=== PATIENT | female | born 1990 | race Caucasian/White ===

== ENCOUNTER 2017-09-03 20:07 | Emergency (ER) | payer MEDICAID ==
--- NOTE | 2017-09-03 22:10 | ER Document Report ---
ED Medical Screen (RME) - General Chief Complaint: Vag Bleeding, +preg <12wks Stated Complaint: VAGINAL BLEEDING Time Seen by Provider: 09/03/17 22:07 Mode of Arrival: Ambulatory Information source: Patient Notes: 27-year-old female presents to ED for vaginal bleeding at 7 weeks . She states she vaginal bleeding was dripping in the toilet then she passed a large clot. She states she has not soaked a solid pad since she started around 8:00. She states she just had a miscarriage in May. She states this time she has had a home test and the doctor's office confirmation test. She states she has not had a blood test yet. I have greeted and performed a rapid initial assessment of this patient. A comprehensive ED assessment and evaluation of the patient, analysis of test results and completion of medical decision making process will be conducted by an additional ED providers. TRAVEL OUTSIDE OF THE [place] IN LAST 30 DAYS: No - Related Data Allergies/Adverse Reactions: No Known Allergies Allergy (Verified 05/23/17 10:11) Past Medical History - Social History Family history: None Renal/ Medical History: Denies: Hx Peritoneal Dialysis - Immunizations Hx Diphtheria, Pertussis, Tetanus Vaccination: Yes Physical Exam - Vital signs Vitals: Temp Pulse Resp BP Pulse Ox 98.7 F 124 H 18 119/79 100 09/03/17 20:33 09/03/17 20:33 09/03/17 20:33 09/03/17 20:33 09/03/17 20:33 Course - Vital Signs Vital signs: Temp Pulse Resp BP Pulse Ox 98.7 F 124 H 18 119/79 100 09/03/17 20:33 09/03/17 20:33 09/03/17 20:33 09/03/17 20:33 09/03/17 20:33
[2017-09-03 22:44] LABS: ABSOLUTE EOSINOPHILS # (AUTO) 0.1 10^3/uL (0.0-0.6); ABSOLUTE LYMPHOCYTES (AUTO) 2.7 10^3/uL (0.5-4.7); ABSOLUTE MONOCYTES (AUTO) 0.9 10^3/uL (0.1-1.4); ABSOLUTE NEUT (AUTO) 5.8 10^3/uL (1.7-8.2); BASOPHILS % (AUTO) 0.3 % (0-2); EOSINOPHILS % (AUTO) 0.6 % (0-6); HEMATOCRIT 40.1 % (36.0-47.0); HEMOGLOBIN 13.5 g/dL (12.0-15.5); LYMPHOCYTES % (AUTO) 28.3 % (13-45); MEAN CORPUSCULAR HGB CONC 33.7 g/dL (32.0-36.0); MEAN CORPUSCULAR VOLUME 92 fl (80-97); MONOCYTES % (AUTO) 9.5 % (3-13); PLATELET COUNT 311 10^3/uL (150-450); RED BLOOD COUNT 4.37 10^6/uL (3.72-5.28); RED CELL DISTRIBUTION WIDTH 14.2 % (11.5-14.0); SEGMENTED NEUTROPHILS % (AUTO) 61.3 % (42-78); TOTAL CELLS COUNTED % (AUTO) 100 %; WHITE BLOOD COUNT 9.4 10^3/uL (4.0-10.5)
[2017-09-03 22:57] LABS: APPEARANCE,URINE CLEAR; BILIRUBIN,URINE NEGATIVE (NEGATIVE); COLOR,URINE STRAW; GLUCOSE, URINE NEGATIVE (NEGATIVE); KETONES,URINE NEGATIVE (NEGATIVE); LEUKOCYTE ESTERASE,URINE NEGATIVE (NEGATIVE); NITRITE,URINE NEGATIVE (NEGATIVE); PROTEIN,URINE NEGATIVE (NEGATIVE); URINE SPECIFIC GRAVITY 1.011; UROBILINOGEN,URINE NEGATIVE mg/dL (<2.0)
--- NOTE | 2017-09-03 22:58 | RADIOLOGY REPORT (SQ) ---
EXAM DESCRIPTION: U/S OB TRANSVAGINAL W/O DOP CLINICAL HISTORY: 27 years, Female, Vaginal bleeding early COMPARISON: 05/23/2017 TECHNIQUE: Transvaginal LIMITATIONS: None. FINDINGS: Living intrauterine fetus measures 7w2d VIOLETA of 04/19/18 based on crown-rump length of 1.1 cm. Cardiac activity: 150 bpm. Ovarian fossae appear unremarkable; ovaries not directly visualized. Cervical length is 2.8 cm. No free fluid. IMPRESSION: Living intrauterine fetus measures 7w2d VIOLETA of 04/19/18.
--- NOTE | 2017-09-04 00:30 | ER Document Report ---
ED GI/ - General Chief Complaint: Vag Bleeding, +preg <12wks Stated Complaint: VAGINAL BLEEDING Time Seen by Provider: 09/03/17 22:07 Mode of Arrival: Ambulatory Information source: Patient Notes: 27-year-old female presented to ED for complaint of vaginal bleeding during early at 7 weeks . She states she noticed some dripping in the toilet and then the passage of black. She states she has not soaked a pad since this started around 8:00 and she thinks that it is stopped at this time. She states she is very concerned because she had a miscarriage in May. She states that this time she had a home and a doctor's office confirmation test. But she has not had any blood work or ultrasound as yet. TRAVEL OUTSIDE OF THE [place] 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, Passing clots : 2 Para: 0 EDC: 04/19/18 ABO type: o Rh factor: pos OB ultrasound done: Yes Associated symptoms: Other - Pelvic pain vaginal bleeding Exacerbated by: Denies Relieved by: Denies Similar symptoms previously: Yes Recently seen / treated by doctor: Yes - Related Data Allergies/Adverse Reactions: No Known Allergies Allergy (Verified 05/23/17 10:11) Past Medical History - General Information source: Patient - Social History Smoking Status: Former Smoker Cigarette use (# per day): No Chew tobacco use (# tins/day): No Smoking Education Provided: No Frequency of alcohol use: None Drug Abuse: None Lives with: Spouse/Significant other Family History: Reviewed & Not Pertinent Patient has suicidal ideation: No Patient has homicidal ideation: No - Past Medical History Cardiac Medical History: Reports: None Pulmonary Medical History: Reports: None EENT Medical History: Reports: None Neurological Medical History: Reports: None Endocrine Medical History: Reports: None Renal/ Medical History: Reports: None Malignancy Medical History: Reports: None GI Medical History: Reports: None Musculoskeltal Medical History: Reports None Skin Medical History: Reports None Psychiatric Medical History: Reports: Hx Anxiety Traumatic Medical History: Reports: None Infectious Medical History: Reports: None Surgical Hx: Negative Past Surgical History: Reports: None - Immunizations Hx Diphtheria, Pertussis, Tetanus Vaccination: Yes Review of Systems - Review of Systems Notes: Constitutional: [PRESENT: as per HPI. ABSENT: chills, fever(s), headache(s), weight gain, weight loss] Eyes: [ABSENT: visual disturbances] Ears: [ABSENT: hearing changes] Cardiovascular: [ABSENT: chest pain, dyspnea on exertion, edema, orthropnea, palpitations] Respiratory: [ABSENT: cough, hemoptysis] Gastrointestinal: [ABSENT: abdominal pain, constipation, diarrhea, hematemesis, hematochezia, nausea, vomiting] Genitourinary: [ABSENT: dysuria, hematuria] patient complained of pelvic pain and vaginal bleeding earlier. She states the pain and bleeding have resolved. She is 7 weeks Musculoskeletal: [ABSENT: joint swelling] Integumentary: [ABSENT: rash, wounds] Neurological: [ABSENT: abnormal gait, abnormal speech, confusion, dizziness, focal weakness, syncope] Psychiatric: [ABSENT: depression, homicidal ideation, suicidal ideation] patient states she has been very anxious ever since the bleeding started. She states that she has a history of anxiety and the fact that she had a recent miscarriage was scaring her. Endocrine: [ABSENT: cold intolerance, heat intolerance, menstrual abnormalities , polydipsia, polyuria] Hematologic/Lymphatic: [ABSENT: easy bleeding, easy bruising, lymphadenopathy] Physical Exam - Vital signs Vitals: Temp Pulse Resp BP Pulse Ox 98.7 F 124 H 18 119/79 100 09/03/17 20:33 09/03/17 20:33 09/03/17 20:33 09/03/17 20:33 09/03/17 20:33 - Notes Notes: PHYSICAL EXAMINATION: GENERAL: 27-year-old female well-appearing, well-nourished and in no acute distress. HEAD: Atraumatic, normocephalic. EYES: Pupils equal round and reactive to light, extraocular movements intact, conjunctiva are normal. ENT: Nares patent, oropharynx clear without exudates. Moist mucous membranes. NECK: Normal range of motion, supple without lymphadenopathy LUNGS: Breath sounds clear to auscultation bilaterally and equal. No wheezes rales or rhonchi. HEART: Regular rate and rhythm without murmurs ABDOMEN: Soft, nontender, nondistended abdomen. No guarding, no rebound. No masses appreciated. Patient states that the pain and bleeding that she was having earlier is all gone there is no abdominal tenderness at this time. Female : deferred Musculoskeletal: Normal range of motion, no pitting or edema. No cyanosis. NEUROLOGICAL: Cranial nerves grossly intact. Normal speech, normal gait. Normal sensory, motor exams PSYCH: Normal mood, normal affect. SKIN: Warm, Dry, normal turgor, no rashes or lesions noted. Course - Re-evaluation Re-evalutation: 09/04/17 00:42 Labs and ultrasounds discussed with patient. Written reports of labs and ultrasound given to patient to follow-up with health department and CORE FEEDER when scheduled. Patient states she was very relieved and very excited that the baby was still alive and she had not lost it. She states she just lost a baby in May and she was scared. Patient and significant other stated the next appointment with the health department was on the and they thought they were supposed to get an CORE FEEDER at that time. They verbalized understanding of need to follow-up with health department by telephone and to take all labs and ultrasound results with them to this visit. Patient verbalized understanding that she needs to follow-up with her primary doctor or return to the ED for any increase in pain or bleeding. Patient also verbalized understanding that she can only use Tylenol Motrin for any discomfort and she needs to refrain from smoking or any use of alcohol. - Vital Signs Vital signs: Temp Pulse Resp BP Pulse Ox 98.1 F 100 18 112/77 98 09/04/17 00:32 09/04/17 00:32 09/04/17 00:32 09/04/17 00:32 09/04/17 00:32 - Laboratory Result Diagrams: 09/03/17 22:23 Laboratory results interpreted by me: 09/03/17 09/03/17 09/03/17 22:23 22:23 22:23 RDW 14.2 H Beta HCG, Quant 471000.00 H Urine Blood MODERATE H - Diagnostic Test Radiology reviewed: Image reviewed, Reports reviewed Discharge - Discharge Clinical Impression: Vaginal bleeding affecting early Condition: Stable Disposition: HOME, SELF-CARE [facility] Additional Instructions: : You are . care is best started as early in as possible. If you're unsure about continuing this , you should discuss this with your physician or with coin wrapping machine operator at [facility]. You should take only medications approved by your physician. Acetaminophen can safely be taken for minor pains. As a rule, medication for chronic conditions such as asthma or seizures can safely be continued. You should discuss with the physician every medicine you take. Any regular exercise program can be continued. Talk to your physician, however, before engaging in competitive or demanding sports. Alcohol, smoking, and "street drugs" are dangerous to your baby. Cocaine is especially dangerous. Don't use any illicit drugs! BLEEDING DURING EARLY : You have been evaluated for passing blood while . While we take this symptom very seriously, most women with your degree of bleeding will go on to have a perfectly normal baby. At this time, there is no indication that a miscarriage will occur. (A miscarriage occurs when the fetus is abnormal. There is no medicine or treatment to prevent it.) A more serious cause of bleeding is tubal (or ectopic) . An ultrasound usually can show whether the is in the uterus or in the tube. Sometimes in early , no fetus is seen. In this case, careful follow-up, including repeat blood tests and repeat ultrasound, is necessary. Do not douche or have sex for at least a week, or until OK'd by the doctor. Don't use tampons. Call the doctor or return for re-examination if there is an increase in bleeding or cramping, extreme weakness, fainting, new abdominal pain, fever, or passage of tissue. I have discussed her labs and ultrasound with you and given you a written report of the labs and ultrasound. It is important that you follow-up with your CORE FEEDER or the health department by telephone on Tuesday and schedule a follow-up appointment. FOLLOW-UP CARE: If you have been referred to a physician for follow-up care, call the physician s office for an appointment as you were instructed or within the next two days. If you experience worsening or a significant change in your symptoms (very heavy bleeding with large clots of blood, passage of tissue, more severe abdominal / pelvic pain or cramping, feeling faint or severe weakness, fever, etc.), notify the physician immediately or return to the Emergency Department at any time for re-evaluation. OBSTETRIC-GYNECOLOGIC (OB-LUMBER YARD WORKER) PHYSICIANS IN [place]: [facility] [address] [place] [address] [phone] For active duty and dependents diagnosed with a threatened or miscarriage, you should follow up in the following manner: Standard patients who have a local civilian provider should follow up with that provider. Patients of the Family Practice Clinic should call your Team Nurse at 8: 00 am the following morning for further instructions. If you are neither a Standard patient nor a patient of the Family Practice Clinic, you should follow up at the [facility] ([facility]) . Patients already enrolled in the [facility] OB Clinic, Prime patients not assigned to the Family Practice Clinic, and Active Duty patients not assigned to Family Practice Clinic should report to the [facility] Lab at 8:00 am the next morning that the [facility] OB Clinic is open and then you will be seen in the OB Clinic at 11:00 am. Forms: Return to Work
[2017-09-04 00:33] VITALS: BP 112/77
== END 2017-09-04 00:45 | disposition home or self-care (01) ==
LOC: ER 20:07
DX: O20.9 Hemorrhage in early pregnancy, unspecified (principal); R10.2 Pelvic and perineal pain; Z3A.01 Less than 8 weeks gestation of pregnancy
CPT/HCPCS: 36415; 76817; 81001; 84702; 85025; 99284

== ENCOUNTER 2017-09-23 09:59 | Emergency (ER) | payer SELFPAY ==
[2017-09-23] MEDS ORDERED: NORMAL SALINE 1000 ML 1,000 ML IV ONE (10:33)
[2017-09-23] MEDS ORDERED: ACETAMINOPHEN 325 MG TABLET PO ONE (10:33)
--- NOTE | 2017-09-23 10:34 | ER Document Report ---
HPI - HPI Patient complains to provider of: Vaginal spotting Onset: Yesterday Pain Level: 1 Context: Patient presents 10 weeks . Patient reports vaginal spotting yesterday. Patient does complain of some nausea. Patient denies any urinary symptoms. Associated Symptoms: Nausea. denies: Nonproductive cough, Vomiting Exacerbated by: Denies Relieved by: Denies Similar symptoms previously: No Recently seen / treated by doctor: No - ROS ROS below otherwise negative: Yes Systems Reviewed and Negative: Yes All other systems reviewed and negative - RESPIRATORY Respiratory: DENIES: Coughing - GASTROINTESTINAL Gastrointestinal: REPORTS: Nausea. DENIES: Abdominal Pain, Patient vomiting - URINARY Urinary: DENIES: Dysuria - REPRODUCTIVE LMP: 07/16/2017 Reproductive: REPORTS: :, Abnormal bleeding / discharge - DERM Skin Color: Normal Skin Problems: None Past Medical History - General Information source: Patient - Social History Smoking Status: Unknown if Ever Smoked Chew tobacco use (# tins/day): No Frequency of alcohol use: None Drug Abuse: None Occupation: [employer] Family History: Reviewed & Not Pertinent Patient has suicidal ideation: No Patient has homicidal ideation: No Renal/ Medical History: Denies: Hx Peritoneal Dialysis Psychiatric Medical History: Reports: Hx Anxiety Surgical Hx: Negative - Immunizations Hx Diphtheria, Pertussis, Tetanus Vaccination: Yes Vertical Provider Document - CONSTITUTIONAL Agree With Documented VS: Yes Exam Limitations: No Limitations General Appearance: WD/WN, No Apparent Distress - INFECTION CONTROL TRAVEL OUTSIDE OF THE [place] IN LAST 30 DAYS: No - HEENT HEENT: Atraumatic, Normocephalic - NECK Neck: Normal Inspection, Supple - RESPIRATORY Respiratory: Breath Sounds Normal, No Respiratory Distress O2 Sat by Pulse Oximetry: 100 - CARDIOVASCULAR Cardiovascular: Regular Rhythm, No Murmur, Tachycardia - GI/ABDOMEN Gastrointestinal: Abdomen Soft, Abdomen Tender - Lower pelvic, No Organomegaly, Normal Bowel Sounds - BACK Back: Normal Inspection. negative: CVA Tenderness-Right, CVA Tenderness-Left - MUSCULOSKELETAL/EXTREMETIES Musculoskeletal/Extremeties: LEXI BARAKAT - NEURO Level of Consciousness: Awake, Alert, Appropriate Motor/Sensory: No Motor Deficit - DERM Integumentary: Warm, Dry, No Rash Course - Vital Signs Vital signs: Temp Pulse Resp BP Pulse Ox 99.1 F 117 H 16 122/73 100 09/23/17 10:11 09/23/17 10:11 09/23/17 10:11 09/23/17 10:11 09/23/17 10:11 - Laboratory Result Diagrams: 09/23/17 11:05 Laboratory results interpreted by me: 09/23/17 12:58 Labs- Entire Visit 09/23/17 09/23/17 09/23/17 10:50 11:05 11:05 WBC 7.6 RBC 4.25 Hgb 13.1 Hct 38.6 MCV 91 MCH 30.9 MCHC 34.0 RDW 14.4 H Plt Count 324 Seg Neutrophils % 71.0 Lymphocytes % 21.6 Monocytes % 6.6 Eosinophils % 0.3 Basophils % 0.5 Absolute Neutrophils 5.4 Absolute Lymphocytes 1.6 Absolute Monocytes 0.5 Absolute Eosinophils 0.0 Absolute Basophils 0.0 Beta HCG, Quant 568583.00 H Total Beta HCG POSITIVE Urine Color YELLOW Urine Appearance CLEAR Urine pH 5.0 Ur Specific [place] 1.025 Urine Protein NEGATIVE Urine Glucose (UA) NEGATIVE Urine Ketones NEGATIVE Urine Blood NEGATIVE Urine Nitrite NEGATIVE Urine Bilirubin NEGATIVE Urine Urobilinogen NEGATIVE Ur Leukocyte Esterase NEGATIVE Urine WBC (Auto) 1 Urine RBC (Auto) 2 Squamous Epi Cells Auto 3 Urine Mucus (Auto) FEW Urine Ascorbic Acid 20 H - Diagnostic Test Radiology reviewed: Reports reviewed Discharge - Discharge Clinical Impression: Vaginal spotting Pelvic pain affecting Qualifiers: Trimester: first trimester Qualified Code(s): O26.891 - Other specified related conditions, first trimester Condition: Stable Disposition: HOME, SELF-CARE Instructions: Bleeding During Early ([facility]), Pelvic Pain in ( [facility]) Additional Instructions: Return immediately for any new or worsening symptoms Followup with your primary care provider, call tomorrow to make a followup appointment Follow-up with your ludlow machine operator for recheck, call today for an appointment Forms: Return to Work Referrals: ARSALAN GRIFFITH [Primary Care Provider] - Follow up as needed [facility] [Provider Group] - Follow up as needed [facility] [ARSALAN ISSA MD] - 09/26/17
[2017-09-23 11:19] LABS: ABSOLUTE LYMPHOCYTES (AUTO) 1.6 10^3/uL (0.5-4.7); ABSOLUTE MONOCYTES (AUTO) 0.5 10^3/uL (0.1-1.4); ABSOLUTE NEUT (AUTO) 5.4 10^3/uL (1.7-8.2); BASOPHILS % (AUTO) 0.5 % (0-2); EOSINOPHILS % (AUTO) 0.3 % (0-6); HEMATOCRIT 38.6 % (36.0-47.0); HEMOGLOBIN 13.1 g/dL (12.0-15.5); LYMPHOCYTES % (AUTO) 21.6 % (13-45); MEAN CORPUSCULAR HEMOGLOBIN 30.9 pg (27.0-33.4); MEAN CORPUSCULAR VOLUME 91 fl (80-97); MONOCYTES % (AUTO) 6.6 % (3-13); PLATELET COUNT 324 10^3/uL (150-450); RED BLOOD COUNT 4.25 10^6/uL (3.72-5.28); RED CELL DISTRIBUTION WIDTH 14.4 % (11.5-14.0); TOTAL CELLS COUNTED % (AUTO) 100 %; WHITE BLOOD COUNT 7.6 10^3/uL (4.0-10.5)
[2017-09-23 11:42] LABS: APPEARANCE,URINE CLEAR; BILIRUBIN,URINE NEGATIVE (NEGATIVE); COLOR,URINE YELLOW; GLUCOSE, URINE NEGATIVE (NEGATIVE); KETONES,URINE NEGATIVE (NEGATIVE); LEUKOCYTE ESTERASE,URINE NEGATIVE (NEGATIVE); NITRITE,URINE NEGATIVE (NEGATIVE); PROTEIN,URINE NEGATIVE (NEGATIVE); URINE SPECIFIC GRAVITY 1.025; UROBILINOGEN,URINE NEGATIVE mg/dL (<2.0)
--- NOTE | 2017-09-23 12:55 | RADIOLOGY REPORT (SQ) ---
EXAM DESCRIPTION: U/S OB TRANSVAGINAL W/O DOP COMPLETED DATE/TIME: 09/23/2017 12:37 pm REASON FOR STUDY: pelvic cramping, vag bleeding COMPARISON: 09/03/2017. TECHNIQUE: Transvaginal static and realtime grayscale images acquired of the pelvis. Additional clifford cted spectral and color Doppler images recorded. All images stored on PACs. bHCG: Not applicable. LIMITATIONS: None. FINDINGS: FETUS: Living intrauterine . EGA: 10 week 3 day. VIOLETA: 04/18/2018. FHR: 173 beats per minute. SUBCHORIONIC BLEED: No. SIZE OF BLEED: Not applicable. UTERUS: No masses. No anomalies. CERVICAL LENGTH: 4.1 cm. Closed. RIGHT ADNEXA: Ovary not identified. No adnexal free fluid. No adnexal masses. LEFT ADNEXA: Normal ovary with normal vascular flow. No adnexal free fluid. 2.2 cm cyst. FREE FLUID: None. OTHER: No other significant finding. IMPRESSION: LIVING INTRAUTERINE . EGA 10 WEEK 3 DAY. Trimester of : First - 0 to 13 weeks. TECHNICAL DOCUMENTATION: JOB ID: [id number] [employer]- All Rights Reserved Reading location - IP/workstation name: [email or web address]
[2017-09-23 13:07] VITALS: BP 107/71
== END 2017-09-23 13:19 | disposition home or self-care (01) ==
LOC: ER 09:59
DX: O26.891 Other specified pregnancy related conditions, first trimester (principal); O46.91 Antepartum hemorrhage, unspecified, first trimester; R11.0 Nausea; Z3A.10 10 weeks gestation of pregnancy
CPT/HCPCS: 99284; 96360; 51701; 36415; 84702; 85025; 81001; 76817; J7030

== ENCOUNTER → 2017-11-19 | Outpatient (CLI) | payer MEDICAID | LOC: LAB 16:48 | PROVIDERS: ATTEND Nurse Practitioner Acute Care | DX: R30.0 Dysuria (principal) | CPT/HCPCS: 87086 ==

== ENCOUNTER 2017-11-21 11:29 | Emergency (ER) | payer MEDICAID ==
[2017-11-21] MEDS ORDERED: ONDANSETRON HCL INJ/PF 4 MG/2 ML SDV IV ONE (11:52)
[2017-11-21] MEDS ORDERED: RINGERS SOLUTION,LACTATED 1,000 ML IV ONE (11:52)
--- NOTE | 2017-11-21 11:55 | ER Document Report ---
ED Medical Screen (RME) - General Chief Complaint: Vomiting/Diarrhea Stated Complaint: VOMITING Time Seen by Provider: 11/21/17 11:50 Notes: RAPID MEDICAL EVALUATION DISCLOSURE I have seen this patient as part of a Rapid Medical Evaluation and, if applicable, placed any initially appropriate orders. The patient will be seen and fully evaluated, including a full history and physical exam, by a provider ( in Main ED or Fast Track) when a room becomes available. 27-year-old female (prior miscarriage) approximately 19 weeks gestation here with complaints of lightheadedness nausea vomiting diarrhea ongoing for the past few days after starting a new medication for UTI (Pyridium, Macrobid). She is here because she is unable to keep anything down including water. EXAM Well-appearing nontoxic Minimally tachycardic TRAVEL OUTSIDE OF THE [place].S. IN LAST 30 DAYS: No - Related Data Allergies/Adverse Reactions: No Known Allergies Allergy (Verified 11/21/17 11:35) Past Medical History - Social History Family history: None Renal/ Medical History: Denies: Hx Peritoneal Dialysis Psychiatric Medical History: Reports: Hx Anxiety - Immunizations Hx Diphtheria, Pertussis, Tetanus Vaccination: Yes Physical Exam - Vital signs Vitals: Temp Pulse Resp BP Pulse Ox 98.3 F 115 H 20 104/70 96 11/21/17 11:46 11/21/17 11:46 11/21/17 11:46 11/21/17 11:46 11/21/17 11:46 Course - Vital Signs Vital signs: Temp Pulse Resp BP Pulse Ox 98.3 F 115 H 20 104/70 96 11/21/17 11:46 11/21/17 11:46 11/21/17 11:46 11/21/17 11:46 11/21/17 11:46
[2017-11-21 12:22] LABS: ABSOLUTE BASOPHILS # (AUTO) 0.1 10^3/uL (0.0-0.2); ABSOLUTE LYMPHOCYTES (AUTO) 1.3 10^3/uL (0.5-4.7); ABSOLUTE MONOCYTES (AUTO) 0.5 10^3/uL (0.1-1.4); ABSOLUTE NEUT (AUTO) 8.6 10^3/uL (1.7-8.2); BASOPHILS % (AUTO) 0.5 % (0-2); EOSINOPHILS % (AUTO) 0.2 % (0-6); HEMATOCRIT 35.3 % (36.0-47.0); HEMOGLOBIN 12.1 g/dL (12.0-15.5); LYMPHOCYTES % (AUTO) 12.8 % (13-45); MEAN CORPUSCULAR HEMOGLOBIN 31.3 pg (27.0-33.4); MEAN CORPUSCULAR HGB CONC 34.3 g/dL (32.0-36.0); MEAN CORPUSCULAR VOLUME 91 fl (80-97); MONOCYTES % (AUTO) 5.1 % (3-13); PLATELET COUNT 310 10^3/uL (150-450); RED BLOOD COUNT 3.88 10^6/uL (3.72-5.28); RED CELL DISTRIBUTION WIDTH 13.9 % (11.5-14.0); SEGMENTED NEUTROPHILS % (AUTO) 81.4 % (42-78); TOTAL CELLS COUNTED % (AUTO) 100 %; WHITE BLOOD COUNT 10.5 10^3/uL (4.0-10.5)
[2017-11-21 12:42] LABS: ALANINE AMINOTRANSFERASE 20 U/L (9-52); ALBUMIN 3.9 g/dL (3.5-5.0); ALKALINE PHOSPHATASE 63 U/L (38-126); ANION GAP 13 (5-19); ASPARTATE AMINO TRANSFERASE 23 U/L (14-36); BILIRUBIN,TOTAL 0.5 mg/dL (0.2-1.3); BLOOD UREA NITROGEN 14 mg/dL (7-20); CALCIUM 9.4 mg/dL (8.4-10.2); CARBON DIOXIDE 24 mmol/L (22-30); CHLORIDE 103 mmol/L (98-107); GLUCOSE 95 mg/dL (75-110); LIPASE 84.1 U/L (23-300); POTASSIUM 3.9 mmol/L (3.6-5.0); TOTAL PROTEIN 7.2 g/dL (6.3-8.2)
--- NOTE | 2017-11-21 13:29 | ER Document Report ---
ED General - General Chief Complaint: Vomiting/Diarrhea Stated Complaint: VOMITING Time Seen by Provider: 11/21/17 11:50 Notes: Patient is a 19 week 27-year-old female presents emergency department the chief complaint of nausea, vomiting and diarrhea. Patient states that she was seen in urgent care for UTI symptoms on Tuesday and prescribed Macrobid. Patient states that she noticed her symptoms after starting her antibiotic. She denies any fevers or chills. She has not taken anything for nausea. She denies any hives, difficulty breathing. States that she has had issues with antibiotics in the past with similar reactions. Patient states that she has had ultrasound confirming her and initial workup. Patient states that she was treated for chlamydia approximately 3 weeks ago. TRAVEL OUTSIDE OF THE [place] IN LAST 30 DAYS: No - Related Data Allergies/Adverse Reactions: No Known Allergies Allergy (Verified 11/21/17 11:35) Past Medical History - Social History Smoking Status: Former Smoker Chew tobacco use (# tins/day): No Frequency of alcohol use: None Drug Abuse: None Family History: Reviewed & Not Pertinent Patient has suicidal ideation: No Patient has homicidal ideation: No Renal/ Medical History: Denies: Hx Peritoneal Dialysis Psychiatric Medical History: Reports: Hx Anxiety - Immunizations Hx Diphtheria, Pertussis, Tetanus Vaccination: Yes Review of Systems - Review of Systems Constitutional: No symptoms reported Cardiovascular: No symptoms reported Respiratory: No symptoms reported Gastrointestinal: See HPI Genitourinary: See HPI Female Genitourinary: No symptoms reported Musculoskeletal: No symptoms reported Neurological/Psychological: No symptoms reported -: Yes All other systems reviewed and negative Physical Exam - Vital signs Vitals: Temp Pulse Resp BP Pulse Ox 98.3 F 115 H 20 104/70 96 11/21/17 11:46 11/21/17 11:46 11/21/17 11:46 11/21/17 11:46 11/21/17 11:46 - Notes Notes: PHYSICAL EXAM GENERAL: Alert, interacts well. HEAD: Normocephalic, atraumatic. EYES: Pupils equal, round, and reactive to light. Extraocular movements intact. ENT: Oral mucosa moist, tongue midline. NECK: Full range of motion. Supple. Trachea midline. LUNGS: Clear to auscultation bilaterally, no wheezes, rales, or rhonchi. No respiratory distress. HEART: Regular rate and rhythm. No murmurs, gallops, or rubs. ABDOMEN: Soft, gravid nondistended, nontender. No guarding, rebound, or rigidity.. Bowel sounds present in all 4 quadrants. EXTREMITIES: Moves all 4 extremities spontaneously. No edema, radial and dorsalis pedis pulses 2/4 bilaterally. No cyanosis. NEUROLOGICAL: Alert and oriented x4. Normal speech. PSYCH: Normal affect, normal mood. SKIN: Warm, dry, normal turgor. No rashes or lesions noted. Course - Re-evaluation Re-evalutation: Patient is a 27-year-old female is hemodynamically stable, no acute distress afebrile. Presentation is consistent with GI upset related to antibiotic for UTI. Urinalysis without any evidence of worsening disease. Chemistry stable without evidence of significant dehydration. Tolerating p.o. without any difficulty. Patient requesting repeat testing for chlamydia and gonorrhea. This was negative. Patient clinically improved after IV fluids and stable for discharge at this time. - Vital Signs Vital signs: Temp Pulse Resp BP Pulse Ox 98.8 F 86 18 127/88 H 99 11/21/17 14:35 11/21/17 14:35 11/21/17 14:35 11/21/17 14:35 11/21/17 14:35 - Laboratory Result Diagrams: 11/21/17 12:03 11/21/17 12:03 Laboratory results interpreted by me: 11/21/17 11/21/17 12:03 13:13 Hct 35.3 L Seg Neutrophils % 81.4 H Lymphocytes % 12.8 L Absolute Neutrophils 8.6 H Urine Ketones TRACE H Urine Nitrite POSITIVE H Urine Urobilinogen 4.0 H Discharge - Discharge Clinical Impression: Vomiting, Condition: Good Disposition: HOME, SELF-CARE Instructions: Antinausea Medication ([facility]), Intravenous (IV) Fluids ([facility]), Vomiting ([facility]) Prescriptions: Ondansetron [Zofran Odt 4 mg Tablet] 1 tab PO Q4H PRN #15 tab.rapdis PRN Reason: For Nausea/Vomiting Forms: Parent Work Note, Return to Work Referrals: [facility] [Provider Group] - Follow up in 1 week
[2017-11-21 13:49] LABS: APPEARANCE,URINE CLEAR; BILIRUBIN,URINE NEGATIVE (NEGATIVE); GLUCOSE, URINE NEGATIVE (NEGATIVE); KETONES,URINE TRACE mg/dL (NEGATIVE); LEUKOCYTE ESTERASE,URINE NEGATIVE (NEGATIVE); NITRITE,URINE POSITIVE (NEGATIVE); PROTEIN,URINE NEGATIVE (NEGATIVE); URINE SPECIFIC GRAVITY 1.005
[2017-11-21 13:50] LABS: COLOR,URINE ORANGE
[2017-11-21 14:36] VITALS: BP 127/88
[2017-11-21 15:16] LABS: CHLAM PCR NOT DETECTED (NOT DETECT); GON PCR NOT DETECTED (NOT DETECT)
== END 2017-11-21 14:35 | disposition home or self-care (01) ==
LOC: ER 11:29
DX: O21.9 Vomiting of pregnancy, unspecified (principal); O26.892 Other specified pregnancy related conditions, second trimester; R19.7 Diarrhea, unspecified; Z3A.19 19 weeks gestation of pregnancy; Z87.891 Personal history of nicotine dependence
CPT/HCPCS: 99284; 96361; 96374; 36415; 83690; 85025; 80053; 81001; 87491; 87591; J2405; J7120

== ENCOUNTER 2018-02-13 16:29 | Outpatient (CLI) | payer MEDICAID ==
[2018-02-13 17:14] LABS: BACTERIA (WET MOUNT) 3+ BACTERIA SEEN; EPITHELIALS (WET MOUNT) 4+ EPITHELIALS SEEN; T.VAGINALIS (WET MOUNT) NO TRICHOMONAS SEEN; WBCS (WET MOUNT) 3+ WBCS SEEN; YEAST (WET MOUNT) NO YEAST SEEN
[2018-02-13 17:22] LABS: AMNISURE (ROM) NEGATIVE (NEGATIVE)
[2018-02-13 17:25] LABS: APPEARANCE,URINE CLEAR; BILIRUBIN,URINE NEGATIVE (NEGATIVE); COLOR,URINE YELLOW; GLUCOSE, URINE NEGATIVE (NEGATIVE); KETONES,URINE NEGATIVE (NEGATIVE); LEUKOCYTE ESTERASE,URINE TRACE (NEGATIVE); NITRITE,URINE NEGATIVE (NEGATIVE); PROTEIN,URINE NEGATIVE (NEGATIVE); URINE SPECIFIC GRAVITY 1.017; UROBILINOGEN,URINE NEGATIVE mg/dL (<2.0)
[2018-02-13 17:40] LABS: URINE AMPHETAMINES SCREEN NEGATIVE; URINE BARBITURATES SCREEN NEGATIVE; URINE BENZODIAZEPINES SCREEN NEGATIVE; URINE COCAINE SCREEN NEGATIVE; URINE MARIJUANA (THC) SCREEN NEGATIVE; URINE METHADONE SCREEN NEGATIVE; URINE PHENCYCLIDINE SCREEN NEGATIVE
[2018-02-13 18:51] LABS: CHLAM PCR NOT DETECTED (NOT DETECT); GON PCR NOT DETECTED (NOT DETECT)
== END 2018-02-13 19:10 | disposition home or self-care (01) ==
LOC: LC 16:29
PROVIDERS: ATTEND Student in an Organized Health Care Education/Training Program
PROC: 4A1HXCZ Monitoring of Products of Conception, Cardiac Rate, External Approach (ICD-10-PCS; principal; 2018-02-13)
DX: O23.593 Infection of other part of genital tract in pregnancy, third trimester (principal); N76.0 Acute vaginitis; B96.89 Other specified bacterial agents as the cause of diseases classified elsewhere; Z3A.30 30 weeks gestation of pregnancy
CPT/HCPCS: 80307; 81001; 84112; 87210; 87491; 87591

== ENCOUNTER 2018-02-25 09:11 | Outpatient (CLI) | payer MEDICAID ==
[2018-02-25 09:51] LABS: APPEARANCE,URINE SLIGHTLY-CLOUDY; BILIRUBIN,URINE NEGATIVE (NEGATIVE); COLOR,URINE YELLOW; GLUCOSE, URINE NEGATIVE (NEGATIVE); KETONES,URINE NEGATIVE (NEGATIVE); LEUKOCYTE ESTERASE,URINE LARGE (NEGATIVE); NITRITE,URINE NEGATIVE (NEGATIVE); PROTEIN,URINE NEGATIVE (NEGATIVE); URINE SPECIFIC GRAVITY 1.006; UROBILINOGEN,URINE NEGATIVE mg/dL (<2.0)
[2018-02-25 10:04] LABS: URINE AMPHETAMINES SCREEN NEGATIVE; URINE BARBITURATES SCREEN NEGATIVE; URINE BENZODIAZEPINES SCREEN NEGATIVE; URINE COCAINE SCREEN NEGATIVE; URINE MARIJUANA (THC) SCREEN NEGATIVE; URINE METHADONE SCREEN NEGATIVE; URINE PHENCYCLIDINE SCREEN NEGATIVE
[2018-02-25] MEDS: RINGERS SOLUTION,LACTATED 1,000 ML IV PRN ×2 (10:59→12:06)
[2018-02-25] MEDS ORDERED: TERBUTALINE SULFATE INJ/PF 1 MG/1 ML SDV SUBCUT ONE ×2 (11:57)
[2018-02-25] MEDS ORDERED: LOPERAMIDE HCL 2 MG CAPSULE PO ONE (11:59)
[2018-02-25] MEDS ORDERED: TERBUTALINE SULFATE INJ/PF 1 MG/1 ML SDV ONE (12:02)
[2018-02-25] MEDS ORDERED: LOPERAMIDE HCL 2 MG CAPSULE ONE (12:03)
[2018-02-25 12:05] LABS: BACTERIA (WET MOUNT) 4+ BACTERIA SEEN; EPITHELIALS (WET MOUNT) 3+ EPITHELIALS SEEN; T.VAGINALIS (WET MOUNT) NO TRICHOMONAS SEEN; WBCS (WET MOUNT) 4+ WBCS SEEN; YEAST (WET MOUNT) NO YEAST SEEN
--- NOTE | 2018-02-25 14:02 | Non Stress Test Report ---
Non Stress Test Datetime Report Generated by CPN: 02/25/2018 14:02 DEMOGRAPHIC EGA NST: 32.0 INDICATION Indication for Study: Previous Demise; Ordered by Provider MONITORING Monitor Explained: Monitor Explained; Test Explained; Patient Verbalized Understanding Time on Monitor: 02/25/2018 09:39 Time off Monitor: 02/25/2018 13:15 NST Duration: 216 NST INTERVENTIONS NST Interventions: PO Hydration; IV Fluids Physician Notified NST: Dr. Ulloa-Julián BABY A: [id number] BABY A Movement : Present Contraction Frequency : Irregular FHR Baseline : 135 Accelerations : 15X15 Decelerations : None NST Review: Meets Criteria for Reactive NST NST Review and Verified By : Chioma Stapleton RN NST Results: Reactive NST REPORT Report Trigger: Send Report
== END 2018-02-25 13:33 | disposition home or self-care (01) ==
LOC: LC 09:11
PROVIDERS: ATTEND Obstetrics & Gynecology Gynecology
PROC: 4A1HXCZ Monitoring of Products of Conception, Cardiac Rate, External Approach (ICD-10-PCS; principal; 2018-02-25)
DX: O26.893 Other specified pregnancy related conditions, third trimester (principal); R10.2 Pelvic and perineal pain
CPT/HCPCS: 59025; 87210; 81001; 80307; J3490; J3105

== ENCOUNTER 2018-03-17 18:41 | Outpatient (CLI) | payer MEDICAID ==
[2018-03-17 19:25] LABS: APPEARANCE,URINE SLIGHTLY-CLOUDY; BILIRUBIN,URINE NEGATIVE (NEGATIVE); COLOR,URINE AMBER; GLUCOSE, URINE 50 mg/dL (NEGATIVE); KETONES,URINE TRACE mg/dL (NEGATIVE); LEUKOCYTE ESTERASE,URINE TRACE (NEGATIVE); NITRITE,URINE NEGATIVE (NEGATIVE); PROTEIN,URINE 30 mg/dL (NEGATIVE); URINE SPECIFIC GRAVITY 1.033
[2018-03-17 19:39] LABS: URINE AMPHETAMINES SCREEN NEGATIVE; URINE BARBITURATES SCREEN NEGATIVE; URINE BENZODIAZEPINES SCREEN NEGATIVE; URINE MARIJUANA (THC) SCREEN NEGATIVE; URINE METHADONE SCREEN NEGATIVE; URINE PHENCYCLIDINE SCREEN NEGATIVE
[2018-03-17 19:51] LABS: URINE COCAINE SCREEN NEGATIVE
== END 2018-03-17 20:38 | disposition home or self-care (01) ==
LOC: LC 18:41
PROVIDERS: ATTEND Obstetrics & Gynecology
PROC: 4A1HXCZ Monitoring of Products of Conception, Cardiac Rate, External Approach (ICD-10-PCS; principal; 2018-03-17)
DX: O47.03 False labor before 37 completed weeks of gestation, third trimester (principal); Z3A.34 34 weeks gestation of pregnancy
CPT/HCPCS: 59025; 80307; 81001

== ENCOUNTER 2018-04-16 07:55 | Inpatient (IN) | payer MEDICAID ==
--- NOTE | 2018-04-16 08:13 | Non Stress Test Report ---
Non Stress Test Datetime Report Generated by CPN: 04/16/2018 08:12 DEMOGRAPHIC EGA NST: 34.6 INDICATION Indication for Study: Ordered by Provider URINE RESULTS Urine Protein, NST: Positive Urine Ketones - NST: Positive Urine Glucose - NST: Positive Urine Blood - NST: Negative MONITORING Monitor Explained: Monitor Explained; Test Explained; Patient Verbalized Understanding Time on Monitor: 03/17/2018 18:55 Time off Monitor: 03/17/2018 20:20 NST Duration: 85 NST INTERVENTIONS NST Interventions: PO Hydration Physician Notified NST: Dr. Givens BABY A: [id number] BABY A Movement : Present Contraction Frequency : Occasional FHR Baseline : 135 Accelerations : 15X15 Decelerations : None Variability : Moderate 6-25bpm NST Review: Meets Criteria for Reactive NST NST Review and Verified By : devyn SPEARST Results: Reactive NST REPORT Report Trigger: Send Report
[2018-04-16] MEDS ORDERED: RINGERS SOLUTION,LACTATED 1,000 ML IV PRN (08:36)
[2018-04-16 08:39] LABS: APPEARANCE,URINE CLOUDY; BILIRUBIN,URINE NEGATIVE (NEGATIVE); COLOR,URINE YELLOW; GLUCOSE, URINE NEGATIVE (NEGATIVE); KETONES,URINE NEGATIVE (NEGATIVE); LEUKOCYTE ESTERASE,URINE NEGATIVE (NEGATIVE); NITRITE,URINE NEGATIVE (NEGATIVE); PROTEIN,URINE 30 mg/dL (NEGATIVE); URINE SPECIFIC GRAVITY 1.006; UROBILINOGEN,URINE NEGATIVE mg/dL (<2.0)
[2018-04-16 08:54] LABS: URINE AMPHETAMINES SCREEN NEGATIVE; URINE BARBITURATES SCREEN NEGATIVE; URINE BENZODIAZEPINES SCREEN NEGATIVE; URINE COCAINE SCREEN NEGATIVE; URINE MARIJUANA (THC) SCREEN NEGATIVE; URINE METHADONE SCREEN NEGATIVE; URINE PHENCYCLIDINE SCREEN NEGATIVE
[2018-04-16 09:51] LABS: ABSOLUTE LYMPHOCYTES (AUTO) 1.7 10^3/uL (0.5-4.7); ABSOLUTE MONOCYTES (AUTO) 0.8 10^3/uL (0.1-1.4); ABSOLUTE NEUT (AUTO) 6.7 10^3/uL (1.7-8.2); BASOPHILS % (AUTO) 0.3 % (0-2); EOSINOPHILS % (AUTO) 0.4 % (0-6); HEMATOCRIT 32.3 % (36.0-47.0); LYMPHOCYTES % (AUTO) 18.5 % (13-45); MEAN CORPUSCULAR HGB CONC 33.9 g/dL (32.0-36.0); MEAN CORPUSCULAR VOLUME 82 fl (80-97); MONOCYTES % (AUTO) 8.7 % (3-13); PLATELET COUNT 298 10^3/uL (150-450); RED BLOOD COUNT 3.92 10^6/uL (3.72-5.28); RED CELL DISTRIBUTION WIDTH 16.3 % (11.5-14.0); SEGMENTED NEUTROPHILS % (AUTO) 72.1 % (42-78); TOTAL CELLS COUNTED % (AUTO) 100 %; WHITE BLOOD COUNT 9.4 10^3/uL (4.0-10.5)
--- NOTE | 2018-04-16 10:15 | Admission Physical ---
Datetime Report Generated by CPN: 04/16/2018 10:15 CURRENT ADMISSION Chief Complaint: Uterine Contractions Indication for Induction: Not Applicable Admit Impression : Term, Intrauterine Admit Plan: Initiate Labor Protocol ALLERGIES Medication Allergies: No Medication Allergies: No Known Allergies (03/17/2018) Latex: No Latex Allergies OBSTETRICAL HISTORY EDC: 04/22/2018 00:00 : 2 Para: 0 Term: 0 : 0 SAB: 1 IAB: 0 Ectopic: 0 Livin Cesareans: 0 VBACs: 0 Multiple Births: 0 Gestational Diabetes: No Rh Sensitization: No Incompetent Cervix: No SAHARA: No Infertility: No ART Treatment: No Uterine Anomaly: No IUGR: No Hx Previous C/S: No Macrosomia: No Hx Loss/Stillborn: No PIH: No Hx : No Placenta Previa/Abruption: No Depression/PP Depression: No PTL/PROM: No Post Hemorrhage: No Current Procedures: Ultrasound; NST Obstetrical History Comments: G1: SAB _6 weeks G2: current (at-home insemination) SEE RECORDS Alcohol: No Marijuana : No Cocaine: No Other Illicit Drugs: No Cigarettes: Former Smoker. [id number] MEDICAL HISTORY Diabetes: No Blood Transfusion: No Pulmonary Disease (Asthma, TB): No Breast Disease: No Hypertension: No Cdl Driver Surgery: No Heart Disease: No Hosp/Surgery: No Autoimmune Disorder: No Anesthetic Complications: No Kidney Disease: Yes Abnormal Pap Smear: Yes Neuro/Epilepsy: No Psychiatric Disorders: Yes Other Medical Diseases: No Hepatitis/Liver Disease: No Significant Family History: No Varicosities/Phlebitis: No Trauma/Violence : No Thyroid Dysfunction: No Medical History Comments: recurring UTIs, BV; anxiety-no meds; Abnormal papsmear September 2017 INFECTIOUS HISTORY Gonorrhea: No Genital Herpes: No Chlamydia: Yes Tuberculosis: No Syphilis: No Hepatitis: No HIV/AIDS Exposure: No Rash or Viral Illness: No HPV: No Infectious History Comments: Chlamydia September 2017 treated PHYSICAL EXAM General: Normal HEENT: Normal Neurologic: Normal Thyroid: Normal Heart: Normal Lungs: Normal Breast: Deferred Back: Normal Abdomen: Normal Genitourinary Exam: Normal Extremities: Normal DTRs: Normal Pelvic Type: Adequate Vital Signs: Reviewed; Within Normal Limits MEMBRANES Pooling: Positive Membranes: Ruptured FETUS A EGA: 39.1 Monitoring: External US PLANS FOR LABOR AND DELIVERY Labor and Delivery: None Pain Management: Natural; Epidural Feeding Preference: Breast Benefit of Breast Feed Discussed: Yes Circumcision: N/A INFORMED CONSENT Signature: with User ID: [email or web address]
[2018-04-16] MEDS ORDERED: OXYTOCIN 10 UNIT/ML VIAL ONE (14:21)
[2018-04-16] MEDS ORDERED: LIDOCAINE 1% INJ-PF (10 MG/ML) 30 ML SDV ONE (14:21)
[2018-04-16] MEDS ORDERED: MISOPROSTOL 0.2 MG TABLET ONE (14:21)
[2018-04-16] MEDS ORDERED: OXYTOCIN/NORMAL SALINE 20 UNIT/1,000 ML RTUINJ ONE (14:21)
[2018-04-16] MEDS ORDERED: NALBUPHINE HCL INJ 10 MG/1 ML AMPULE ONE (14:46)
[2018-04-16] MEDS ORDERED: PROMETHAZINE HCL INJ 25 MG/1 ML VIAL ONE (14:46)
[2018-04-16] MEDS ORDERED: ZOLPIDEM TARTRATE 5 MG TABLET PO PRN (19:11)
[2018-04-16] MEDS ORDERED: DIBUCAINE 1% OINTMENT 28 GM TP PRN (19:11)
[2018-04-16] MEDS ORDERED: PROMETHAZINE HCL 25 MG TABLET PO PRN (19:11)
[2018-04-16] MEDS ORDERED: ACETAMINOPHEN 650 MG SUPP.RECT PR PRN (19:11)
[2018-04-16] MEDS ORDERED: OXYTOCIN/NORMAL SALINE 20 UNIT/1,000 ML RTUINJ IV PRN (19:11)
[2018-04-16] MEDS ORDERED: MAGNESIUM HYDROXIDE SUSP 30 ML UDCUP PO PRN (19:11)
[2018-04-16] MEDS ORDERED: PSEUDOEPHEDRINE HCL 30 MG TABLET PO PRN (19:11)
[2018-04-16] MEDS ORDERED: NA PHOS,M-B/NA PHOS,DI-BA (ADULT) 133 ML ENEMA PR PRN (19:11)
[2018-04-16] MEDS ORDERED: DIPHENHYDRAMINE HCL 25 MG CAPSULE PO PRN (19:11)
[2018-04-16] MEDS ORDERED: MEASLES,MUMPS&RUBELLA VACC/PF 0.5 ML VIAL SUBCUT PRN (19:11)
[2018-04-16] MEDS ORDERED: GLYCERIN/WITCH HAZEL LEAF 1 EACH MED..PAD TP PRN (19:11)
[2018-04-16] MEDS ORDERED: PROMETHAZINE HCL 25 MG SUPP.RECT PR PRN (19:11)
[2018-04-16] MEDS ORDERED: DIPH/PERTUSS(ACELL)/TETANUS VAC/PF 0.5 ML SYR (>=10YO) IM PRN (19:11)
[2018-04-16] MEDS ORDERED: PROMETHAZINE HCL INJ 25 MG/1 ML VIAL IV PRN (19:11)
[2018-04-16] MEDS ORDERED: BENZOCAINE/MENTHOL AEROSOL SPRAY 56 ML TOP PRN (19:11)
--- NOTE | 2018-04-16 19:33 | Warning Signs in Babies ---
VOD Warning Signs Datetime Report Generated by N: 04/16/2018 19:33 VOD#608 -Warning Signs in Babies: Needs to be viewed. (02/13/2018 17:29:Valerie Castrejon RN)
[2018-04-16] MEDS ORDERED: IBUPROFEN 800 MG TABLET ONE (20:08)
--- NOTE | 2018-04-16 22:13 | Delivery Summary ---
Del Sum A-C Datetime Report Generated by CPN: 04/16/2018 22:13 DELIVERY PERSONNEL DELIVERY PERSONNEL: [id number] Delivery Doctor:: Ori Rausch, MD Labor and Delivery Nurse:: Jenn Stapleton RN Nursery Nurse:: Kellee Herrera, RNC Clothing Sales Assistant/TRAFFIC INCIDENT MANAGEMENT MANAGER: Jessi Jo, ST MATERNAL INFORMATION Delivery Anesthesia: None Medications After Delivery: Pitocin Drip 20 Units/1000ml NSS Maternal Complications: None LABOR SUMMARY EDC: 04/22/2018 00:00 No. Babies in Womb: 0 Attempted: No Labor Anesthesia: IV Sedation LABOR INFORMATION Reason for Induction: Not Applicable Onset of Labor: 04/16/2018 07:20 Complete Dilatation: 04/16/2018 17:23 Oxytocin: N/A Group B Beta Strep: negative Antibiotics # of Doses: 0 Antibiotics Time of Last Dose: n/a Name of Antibiotic Given: n/a Steroids Given: None Reason Steroids Not Administered: Not Applicable MEMBRANES Membranes Rupture Method: Spontaneous Rupture of Membranes: 04/16/2018 07:20 Length of Rupture (hr): 11.57 Amniotic Fluid Color: Clear Amniotic Fluid Amount: Scant Amniotic Fluid Odor: Normal STAGES OF LABOR Stage 1 hr: 10 Stage 1 min: 3 Stage 2 hr: 1 Stage 2 min: 31 Stage 3 hr: 0 Stage 3 min: 7 Total Time in Labor hr: 11 Total Time in Labor min: 41 VAGINAL DELIVERY Episiotomy: None Laceration #1: Perineal Laceration Extension #1: First Degree Laceration Repair: Yes Laceration Repair Note: repaired with 2-0 vicryl CSECTION DELIVERY Primary Indication: N/A Secondary Indication: N/A CSection Incidence: N/A Labor: N/A Elective: N/A CSection Incision: N/A BABY A INFORMATION Infant Delivery Date/Time: 04/16/2018 18:54 Method of Delivery: Vaginal Born in Route : No : N/A Forceps: N/A Vacuum Extraction: N/A Shoulder Dystocia : No PRESENTATION/POSITION BABY A Presentation: Cephalic Cephalic Presentation: Vertex Vertex Position: Right Occipital Anterior Breech Presentation: N/A PLACENTA INFORMATION BABY A Placenta Delivery Time : 04/16/2018 19:01 Placenta Method of Delivery: Spontaneous Placenta Status: Delivered SCORES BABY A Heart Rate 1 min: >100 bpm Resp Effort 1 min: Good Cry Reflex Irritability 1 min: Cough or Sneeze or Pulls Away Muscle Tone 1 min: Active Motion Color 1 min: Body [place], Extremities Blue Resuscitation Effort 1 min: Tactile Stimulation SCORE 1 MIN: 9 Heart Rate 5 min: >100 bpm Resp Effort 5 min: Good Cry Reflex Irritability 5 min: Cough or Sneeze or Pulls Away Muscle Tone 5 min: Active Motion Color 5 min: Body [place], Extremities Blue Resuscitation Effort 5 min: Tactile Stimulation SCORE 5 MIN: 9 INFANT INFORMATION BABY A Gestational Age at Delivery: 39.1 Gestational Status: Full Term- 39- 40.6 Weeks Infant Outcome : Liveborn Infant Condition : Stable Infant Sex: Female IDENTIFICATION BABY A Verification Date/Time: 04/16/2018 19:24 ID Band Number: [id number] Mother's Name Verified: Yes Infant RN Verifying : M HILL RN B RING RN WEIGHT/LENGTH BABY A Infant Birthweight (gm): 3420 Infant Weight (lb): 7 Infant Weight (oz): 9 Infant Length (in): 20.00 Infant Length (cm): 50.80 CORD INFORMATION BABY A No. Cord Vessels: 3 Nuchal Cord : Around Neck x1, Loose Cord Blood Taken: Yes-For Eval (Mom's Blood Type - or O+) ASSESSMENT BABY A Infant Complications: None Physical Findings at Delivery: Within Normal Limits Physical Findings- Other: nuchal cord x 1; see full nursery used car manager Respirations: Appears Normal Skin to Skin: Yes Skin to Skin Time (min): 45 Elevator Operator Service/ALS Called : No Care By: Sondra Herrera RN Transferred To: Remains with Mother BABY B INFORMATION : N/A SIGNATURES Signature: with User ID: [email or web address]
[2018-04-17] MEDS: IBUPROFEN 800 MG TABLET PO SCH ×3 (06:42→21:31)
[2018-04-17 06:48] LABS: HEMATOCRIT 29.8 % (36.0-47.0); HEMOGLOBIN 10.1 g/dL (12.0-15.5); MEAN CORPUSCULAR HEMOGLOBIN 27.9 pg (27.0-33.4); MEAN CORPUSCULAR HGB CONC 33.9 g/dL (32.0-36.0); MEAN CORPUSCULAR VOLUME 82 fl (80-97); PLATELET COUNT 263 10^3/uL (150-450); RED BLOOD COUNT 3.62 10^6/uL (3.72-5.28); RED CELL DISTRIBUTION WIDTH 16.2 % (11.5-14.0); WHITE BLOOD COUNT 16.2 10^3/uL (4.0-10.5)
[2018-04-17] MEDS: FAMOTIDINE 20 MG TABLET PO SCH ×2 (10:14→21:30)
[2018-04-17] MEDS: SENNOSIDES/DOCUSATE 8.6-50 MG 1 EACH TABLET PO SCH (10:15)
[2018-04-17] MEDS: DOCUSATE SODIUM 100 MG CAPSULE PO SCH ×2 (10:15→18:44)
[2018-04-17] MEDS: ACETAMINOPHEN WITH CODEINE #3 TABLET PO PRN ×2 (10:15→21:30)
[2018-04-17] MEDS: FERROUS SULFATE 325 MG TABLET PO SCH ×2 (10:15→18:44)
[2018-04-17] MEDS: PRENATAL VITAMIN W DHA CAPSULE PO SCH (10:15)
--- NOTE | 2018-04-17 13:05 | PDOC PROGRESS REPORT ---
Subjective-OB Progress Note for:: 04/17/18 Subjective: reports bleeding slowing, pain controlled with current meds, denies needs Physical Exam (OB) Vital Signs: Temp Pulse Resp BP Pulse Ox 98.2 F 88 15 112/74 100 04/17/18 07:52 04/17/18 07:52 04/17/18 07:52 04/17/18 07:52 04/17/18 07:52 Intake & Output 04/16/18 04/17/18 04/18/18 06:59 06:59 06:59 Intake Total 480 Balance 480 Weight 63.639 kg - Abdomen Description: Soft Hernia Present: No Fundal Description: Firm, Midline Fundal Height: u/u - u/2 - Abdominal Distension: No distension Tenderness: Nontender - Extremities Lower extremities: Will's sign - neg Calf: Normal, Nontender Objective-Diagnostic Laboratory: 04/17/18 06:31 04/17/18 06:31 WBC 16.2 H RBC 3.62 L Hgb 10.1 L Hct 29.8 L MCV 82 MCH 27.9 MCHC 33.9 RDW 16.2 H Plt Count 263 Assessment and Plan(PN) - Assessment and Plan (1) Normal vaginal delivery Is this a current diagnosis for this admission?: Yes - Time Spent with Patient Time with patient: Less than 15 minutes - Disposition Anticipated Discharge: Home Within: within 24 hours
[2018-04-18] MEDS: IBUPROFEN 800 MG TABLET PO SCH (06:10)
[2018-04-18 08:20] VITALS: BP 111/75
[2018-04-18] MEDS: PRENATAL VITAMIN W DHA CAPSULE PO SCH (09:43)
[2018-04-18] MEDS: FERROUS SULFATE 325 MG TABLET PO SCH (09:45)
[2018-04-18] MEDS: DOCUSATE SODIUM 100 MG CAPSULE PO SCH (09:46)
[2018-04-18] MEDS: FAMOTIDINE 20 MG TABLET PO SCH (09:46)
[2018-04-18] MEDS: SENNOSIDES/DOCUSATE 8.6-50 MG 1 EACH TABLET PO SCH (09:46)
--- NOTE | 2018-04-18 10:05 | PDOC DISCHARGE SUMMARY ---
Final Diagnosis Discharge Date: 04/18/18 - Final Diagnosis (1) Normal course Is this a current diagnosis for this admission?: Yes (2) Normal vaginal delivery Is this a current diagnosis for this admission?: Yes Discharge Data - Discharge Medication Prescriptions: Ibuprofen [Motrin 800 mg Tablet] 800 mg PO Q8 PRN #60 tablet PRN Reason: Pain Scale Of 3 Home Medications: Pnv,Calcium 72/Iron/Folic Acid [Pnv Plus Multivit Tab] 1 each PO DAILY 05/22/17 Ferrous Sulfate [Iron] 325 mg PO DAILY 04/16/18 Ibuprofen [Motrin 800 mg Tablet] 800 mg PO Q8 PRN #60 tablet 04/18/18 Reason(s) for Admission: Onset of Labor Procedures: Ultrasound Intrapartum Procedure(s): Spontaneous Vaginal Delivery Complication(s): Laceration-Perineal Laceration-Degree: 1st - Diagnosis Test Laboratory: Temp Pulse Resp BP Pulse Ox 98.2 F 103 H 15 111/75 100 04/18/18 07:53 04/18/18 07:53 04/18/18 07:53 04/18/18 07:51 04/18/18 07:53 04/16/18 04/16/18 04/17/18 08:00 09:25 06:31 RBC 3.92 3.62 L Hgb 11.0 L 10.1 L Hct 32.3 L 29.8 L Urine Opiates Screen NEGATIVE - Discharge information/Instructions Discharge Activity: Activity As Tolerated Discharge Diet: As Tolerated, Regular Disposition: HOME, SELF-CARE Follow up with: [facility] in: 4, Weeks
== END 2018-04-18 13:39 | disposition home or self-care (01) | DRG 807 ==
LOC: LC 07:55 → LR 08:32 → 2S 21:40
PROVIDERS: ADMIT Obstetrics & Gynecology Gynecology; ATTEND Obstetrics & Gynecology Gynecology
PROC: 10E0XZZ Delivery of Products of Conception, External Approach (ICD-10-PCS; principal; 2018-04-16)
PROC: 0HQ9XZZ Repair Perineum Skin, External Approach (ICD-10-PCS; 2018-04-16)
PROC: 4A1HXCZ Monitoring of Products of Conception, Cardiac Rate, External Approach (ICD-10-PCS; 2018-04-16)
PROC: 3E0234Z Introduction of Serum, Toxoid and Vaccine into Muscle, Percutaneous Approach (ICD-10-PCS; 2018-04-18)
DX: O70.0 First degree perineal laceration during delivery (principal); Z37.0 Single live birth; O69.81X0 Labor and delivery complicated by cord around neck, without compression, not applicable or unspecified; Z3A.39 39 weeks gestation of pregnancy; Z87.891 Personal history of nicotine dependence; Z87.440 Personal history of urinary (tract) infections; Z23 Encounter for immunization
CPT/HCPCS: 36415; 80307; 81005; 85025; 85027; 86592; 86850; 86900; 86901; 90471; 90686; 90715; G0008; J2300; J2550; J2590; J3490

== ENCOUNTER 2020-07-26 10:54 | Emergency (ER) | payer SELFPAY ==
--- NOTE | 2020-07-26 11:05 | ER Document Report ---
HPI - HPI Time Seen by Provider: 07/26/20 11:05 Notes: CHIEF COMPLAINT: Dental pain HPI: 30-year-old female presenting to the emergency department complaining of dental pain to the bilateral upper first molars. States she had an abscess on the right upper first molar last week saw her dentist they put her on amoxicillin. States she began having increasing pain over the last 2 days to the left upper first molar and second premolar region. No facial swelling no fever. States she was not placed on any pain medications by the dentist. ROS: See HPI - all other systems were reviewed and are otherwise negative Constitutional: no fever Eyes: no drainage, no blurred vision ENT: no runny nose, no sore throat, positive dental pain Integumentary: no rash Allergy: no hives MEDICATIONS: I agree with the patient medications as charted by the RN. ALLERGIES: I agree with the allergies as charted by the RN. PAST MEDICAL HISTORY/PAST SURGICAL HISTORY: Reviewed and agree as charted by RN. SOCIAL HISTORY: Reviewed and agree as charted by RN. FAMILY HISTORY: No significant familial comorbid conditions directly related to patient complaint EXAM: Reviewed vital signs as charted by RN. CONSTITUTIONAL: Alert and oriented and responds appropriately to questions. Well-appearing; well-nourished HEAD: Normocephalic; atraumatic EYES: PERRL; Conjunctivae clear, sclerae non-icteric ENT: normal nose; no rhinorrhea; moist mucous membranes; pharynx without lesions noted, no uvula edema or deviation, no tonsillar hypertrophy, phonation normal. Dental caries noted to the left upper second premolar and first molar with some gingival erythema with no fluctuance. No trismus. No facial swelling. The right upper second premolar noted to be removed with some erythema at the gingiva. No sublingual swelling. NECK: Supple without meningismus CARD: Capillary refill less than 3 seconds RESP: Normal chest excursion without splinting or tachypnea ABD/GI: non-distended BACK: The back appears normal EXT: Normal ROM in all joints; no cyanosis, no effusions, no edema SKIN: Normal color for age and race; warm; dry; good turgor; no acute lesions noted NEURO: Moves all extremities equally; Motor and sensory function intact PSYCH: The patient's mood and manner are appropriate. Grooming and personal hygiene are appropriate. MDM: 30-year-old female with dental pain from dental caries. She is on amoxicillin will switch to clindamycin. Short course of pain medication referral back to her dentist on Tuesday - REPRODUCTIVE Reproductive: REPORTS: : Past Medical History - Social History Smoking Status: Unknown if Ever Smoked Family History: Reviewed & Not Pertinent Renal/ Medical History: Denies: Hx Peritoneal Dialysis Psychiatric Medical History: Reports: Hx Anxiety - Immunizations Hx Diphtheria, Pertussis, Tetanus Vaccination: Yes Vertical Provider Document - INFECTION CONTROL TRAVEL OUTSIDE OF THE [place] IN LAST 30 DAYS: No Course - Re-evaluation Re-evalutation: 07/26/20 11:20 Patient vital signs have not yet been entered by nursing I will have them enter these and notify me if they are abnormal prior to discharge - Laboratory Results Critical Laboratory Results Reviewed: No Critical Results - Radiology Results Critical Radiology Results Reviewed: No Critical Results Discharge - Discharge Clinical Impression: Pain due to dental caries Condition: Stable Disposition: HOME, SELF-CARE Additional Instructions: 1. Take the medications as prescribed, if you were written antibiotics make sure that you finish them. 2. You need to follow up with a dentist for definitive evaluation and care of your dental problems 3. return to the ED for any facial swelling, fever > 101, difficulty swallowing or opening the mouth. 4. You may attempt to follow up with the [facility] for further care as well as through the dental list provided. 5. you may want to consider a dental discount plan such as www.dentalplans.com to help with costs of dental care as you do not have dental insurance Prescriptions: Tramadol HCl [Ultram 50 mg Tablet] 50 mg PO Q6HP PRN #12 tab PRN Reason: Clindamycin HCl [Cleocin 150 mg Capsule] 150 mg PO Q6 #40 capsule Diclofenac Sodium [Voltaren 50 Mg Tablet.] 50 mg PO BID #20 tablet.
[2020-07-26 11:29] VITALS: BP 145/70
== END 2020-07-26 11:30 | disposition home or self-care (01) ==
LOC: ER 10:54
DX: K02.9 Dental caries, unspecified (principal)
CPT/HCPCS: 99283

== ENCOUNTER 2020-08-14 10:22 | Emergency (ER) | payer SELFPAY ==
--- NOTE | 2020-08-14 10:49 | ER Document Report ---
ED Medical Screen (RME) - General Chief Complaint: Cat Bite Stated Complaint: CAT SCRATCHES/LEG,ARM Time Seen by Provider: 08/14/20 10:47 Notes: HPI: 30-year-old female presenting with cat scratches to the legs back and arms. Her cats. They are up-to-date on shots. She is up-to-date on her tetanus vaccination. She was concerned about infection PHYSICAL EXAMINATION: Exam was limited in triage as patient is fully dressed in skin tight leggings and top. Will need room for exam I have greeted and performed a rapid initial assessment of this patient. A comprehensive ED assessment and evaluation of the patient, analysis of test resu lts and completion of medical decision making process will be conducted by an additional ED providers. Please note that clinical decision making for this patient was made during the 2019 pandemic of novel coronavirus which caused a significant strain on the healthcare system including at this particular facility. Criteria for admission discharge and level of care decisions as well as treatment decisions have necessarily changed TRAVEL OUTSIDE OF THE [place] IN LAST 30 DAYS: No - Related Data Allergies/Adverse Reactions: No Known Allergies Allergy (Verified 08/14/20 10:45) Past Medical History - Social History Family history: None Renal/ Medical History: Denies: Hx Peritoneal Dialysis Psychiatric Medical History: Reports: Hx Anxiety - Immunizations Hx Diphtheria, Pertussis, Tetanus Vaccination: Yes Physical Exam - Vital signs Vitals: Temp Pulse Resp BP Pulse Ox 98.0 F 115 H 16 115/84 100 08/14/20 10:25 08/14/20 10:08/14/20 10:08/14/20 10:25 08/14/20 10:25 Course - Vital Signs Vital signs: Temp Pulse Resp BP Pulse Ox 98.0 F 115 H 16 115/84 100 08/14/20 10:25 08/14/20 10:25 08/14/20 10:25 08/14/20 10:25 08/14/20 10:25
--- NOTE | 2020-08-14 12:37 | ER Document Report ---
Entered by MERVIN BROWER SCRIBE 08/14/20 1207 Acting as scribe for:DANNY DRISCOLL MD ED Skin Rash/Insect Bite/Abscs - General Chief Complaint: Skin Problem Stated Complaint: CAT SCRATCHES/LEG,ARM Time Seen by Provider: 08/14/20 10:47 Mode of Arrival: Ambulatory Information source: Patient Notes: This 30 year old female patient presents to the ED today with complaints of multiple cat scratches to her legs, back, and arms. Patient states that her x2 cats "attacked" her yesterday. The cats' shots and the patient's tetanus are up-to-date. Denies being bitten. TRAVEL OUTSIDE OF THE [place] IN LAST 30 DAYS: No - Related Data Allergies/Adverse Reactions: No Known Allergies Allergy (Verified 08/14/20 10:45) Past Medical History - General Information source: Patient - Social History Smoking Status: Current Every Day Smoker Chew tobacco use (# tins/day): No Smoking Education Provided: No Frequency of alcohol use: None Drug Abuse: None Family History: Reviewed & Not Pertinent Psychiatric Medical History: Reports: Hx Anxiety - Immunizations Hx Diphtheria, Pertussis, Tetanus Vaccination: Yes Review of Systems - Review of Systems Constitutional: No symptoms reported EENT: No symptoms reported Cardiovascular: No symptoms reported Respiratory: No symptoms reported Gastrointestinal: No symptoms reported Genitourinary: No symptoms reported Female Genitourinary: No symptoms reported Musculoskeletal: No symptoms reported Skin: See HPI Hematologic/Lymphatic: No symptoms reported Neurological/Psychological: No symptoms reported -: Yes All other systems reviewed and negative Physical Exam - Vital signs Vitals: Temp Pulse Resp BP Pulse Ox 98.0 F 115 H 16 115/84 100 08/14/20 10:25 08/14/20 10:25 08/14/20 10:25 08/14/20 10:25 08/14/20 10:25 - General General appearance: Alert In distress: None - HEENT Head: Normocephalic, Atraumatic Eyes: Normal Extraocular movements intact: Yes Pupils: PERRL Neck: Normal, Supple - Respiratory Respiratory status: No respiratory distress Chest status: Nontender Breath sounds: Normal Chest palpation: Normal - Cardiovascular Rhythm: Regular Heart sounds: Normal auscultation Murmur: No - Abdominal Inspection: Normal Distension: No distension Bowel sounds: Normal Tenderness: Nontender - Abdomen soft Organomegaly: No organomegaly - Back Back: Nontender, Wounds - Multiple superficial cat scratches near right axilla - Extremities General upper extremity: No: Normal inspection - Multiple superficial cat scratches on bilateral upper extremities General lower extremity: No: Normal inspection - Multiple superficial cat scratches on bilateral lower extremities - Neurological Neuro grossly intact: Yes Orientation: AAOx4 Jeff Coma Scale Eye Opening: Spontaneous Bowie Coma Scale Verbal: Oriented Bowie Coma Scale Motor: Obeys Commands Jeff Coma Scale Total: 15 - Psychological Associated symptoms: Normal affect, Normal mood - Skin Skin irregularity: other - Multiple superficial cat scratches to bilateral lower and upper extremities and back near the right axilla. No bites seen. Course - Vital Signs Vital signs: Temp Pulse Resp BP Pulse Ox 98.0 F 98 18 122/80 100 08/14/20 10:25 08/14/20 12:46 08/14/20 12:46 08/14/20 12:46 08/14/20 12:46 - Laboratory Results Critical Laboratory Results Reviewed: No Critical Results - Radiology Results Critical Radiology Results Reviewed: No Critical Results Discharge - Discharge Clinical Impression: Cat scratch Condition: Stable Disposition: HOME, SELF-CARE Additional Instructions: Keep the cat scratches clean. Take the Augmentin as prescribed. Follow-up with a local primary care provider or return to the emergency room if you are showing any signs of infection. RETURN TO THE EMERGENCY ROOM IF ANY NEW OR WORSENING SYMPTOMS. Prescriptions: Amoxicillin/Potassium Clav [Augmentin 875-125 Tablet] 1 tab PO BID #10 tab Forms: Return to Work I personally performed the services described in the documentation, reviewed and edited the documentation which was dictated to the scribe in my presence, and it accurately records my words and actions.
[2020-08-14 12:47] VITALS: BP 122/80
== END 2020-08-14 12:35 | disposition home or self-care (01) ==
LOC: ER 10:22
DX: S20.411A Abrasion of right back wall of thorax, initial encounter (principal); S40.812A Abrasion of left upper arm, initial encounter; S40.811A Abrasion of right upper arm, initial encounter; S80.812A Abrasion, left lower leg, initial encounter; S80.811A Abrasion, right lower leg, initial encounter; W55.03XA Scratched by cat, initial encounter; F17.200 Nicotine dependence, unspecified, uncomplicated
CPT/HCPCS: 99283